=== PATIENT | female | born 1965 | race Caucasian/White ===

== ENCOUNTER → 2023-07-31 08:12 | Outpatient (REF) | payer BC, SELFPAY | LOC: HWRAD 08:12 | PROVIDERS: ATTENDING PHYSICIAN Nurse Practitioner Family | DX: C25.9 Malignant neoplasm of pancreas, unspecified (principal); R79.89 Other specified abnormal findings of blood chemistry | CPT/HCPCS: 74177; Q9967 ==

== ENCOUNTER → 2023-12-19 14:45 | Outpatient (REF) | payer BC, SELFPAY | LOC: RCS 14:45 | PROVIDERS: ATTENDING PHYSICIAN Internal Medicine Cardiovascular Disease; FAMILY PHYSICIAN Nurse Practitioner Family | DX: R07.89 Other chest pain (principal); I42.8 Other cardiomyopathies; I51.81 Takotsubo syndrome; I44.7 Left bundle-branch block, unspecified | CPT/HCPCS: 93306 ==

== ENCOUNTER → 2024-01-26 07:39 | Outpatient (REF) | payer BC, SELFPAY | LOC: DHCBC/DCA 07:39 | PROVIDERS: ATTENDING PHYSICIAN Internal Medicine Cardiovascular Disease; FAMILY PHYSICIAN Nurse Practitioner Family | DX: R07.89 Other chest pain (principal) | CPT/HCPCS: 78452; 93017; A9500; J2785 ==

== ENCOUNTER → 2024-02-24 08:35 | Outpatient (REF) | payer BC, SELFPAY | LOC: WDC 08:35 | PROVIDERS: ATTENDING PHYSICIAN Obstetrics & Gynecology; FAMILY PHYSICIAN Nurse Practitioner Family | DX: Z12.31 Encounter for screening mammogram for malignant neoplasm of breast (principal) | CPT/HCPCS: 77063; 77067 ==

== ENCOUNTER 2024-03-25 06:26 | Day surgery (SDC) | payer BC, SELFPAY | END 2024-03-25 12:29 | disposition home or self-care (01) | LOC: GI 06:26 | PROVIDERS: ATTENDING PHYSICIAN Internal Medicine Gastroenterology | DX: K22.89 Other specified disease of esophagus (principal); K44.9 Diaphragmatic hernia without obstruction or gangrene; Z90.49 Acquired absence of other specified parts of digestive tract | CPT/HCPCS: 43239; 88305 ==

== ENCOUNTER 2024-07-24 20:17 | Emergency (ER) | payer BC, SELFPAY ==
[2024-07-24 20:21] VITALS: BP 181/115
[2024-07-24 20:46] LABS: % Basophils 0.4 % (0-2); % Eosinophils 2.7 % (0-6); % Immature Granulocytes 0.2 % (0-0.5); % Lymphocytes 36.8 % (20.5-51.1); % Neutrophils 52.9 % (42.2-75.2); Absolute Eosinophils 0.1 10^3/uL (0-0.7); Absolute Lymphocytes 1.8 10^3/uL (1.2-3.4); Absolute Monocytes 0.3 10^3/uL (0.1-0.6); Absolute Neutrophils 2.6 10^3/uL (1.4-6.5); Hematocrit 42.7 % (37.0-47.0); Hemoglobin 14.8 g/dL (12.0-16.0); Mean Corp Hgb Conc. 34.7 g/dL (33.0-37.0); Mean Corpuscular Volume 92.2 fL (81.0-99.0); Mean Platelet Volume 9.4 fL (7.4-10.4); Nucleated Red Blood Cells % 0 %; Platelet Count 226 10^3/uL (130-400); Red Blood Cell Count 4.63 10^6/uL (4.20-5.40); Red Cell Dist. Width 13.4 % (11.5-14.5); White Blood Cell Count 4.9 10^3/uL (4.8-10.8)
[2024-07-24 21:00] LABS: ALT (SGPT) 100 U/L (0-35); AST (SGOT) 90 U/L (14-36); Albumin 4.8 g/dl (3.5-5.0); Alkaline Phosphatase 100 U/L (38-126); Blood Urea Nitrogen 13 mg/dl (7-17); Calcium 9.5 mg/dl (8.4-10.2); Carbon Dioxide 26 mmol/L (22-30); Chloride 104 mmol/L (98-107); Glucose 137 mg/dl (70-99); Potassium 4.1 mmol/L (3.5-5.1); Sodium 141 mmol/L (135-145); Total Bilirubin 0.5 mg/dl (0.2-1.3); Total Protein 7.7 g/dl (6.3-8.2); eGFR > 60.00
[2024-07-24 21:09] VITALS: BP 160/98
[2024-07-24 21:13] LABS: Troponin I < 0.012 ng/ml
[2024-07-24 21:42] VITALS: BP 161/86
--- NOTE | 2024-07-24 21:52 | ED.GENMED ---
History of Present Illness
<Diane Carroll PA-C - Last Filed: 07/26/24 18:17>
General
Chief Complaint: Blood Pressure Problem
Source: patient
Exam Limitations: none
Time Seen by Provider: 07/24/24 21:17
Nursing documentation reviewed up to this point in time: agreed with
History of Present Illness
History of Present Illness:
pt is a 59 y/o F with h/o pancreatic cancer s/p [place] 2017 followed by [facility]
htn on metoprolol 12.5 mg bid succ
says she woke up feeling a little off, anxious, mild headache, and some chest tightness and was just feeling off
she checked her bp and itw as 140-150/90s
she says she normally feels fine and run 130/70s
so she often times doesn't take her meds
actually she was bottoming out with the 25 mg succinate once a day so she split it in half
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
she says that she knows she is noncompliant with her meds most of the time
but more recently she had noticed her BP creeping up so she did take 1 dose yesterday and took half tab at 630 pm and another half tab at 730 pm tongiht
she now feels ok
she has been under stress at work
mild headache, no vision changes
felt some chest tightness all day, nonexertional, no pleuritic pain, no swelling in legs
she has chronically had LFT elevation
but her LFTs are a little higher today than usual she thinks; we do not have labs in the system more recent than 2022; pt says she had labs in april andthinks the LFTs were lower
she is not having belly pain, vomiting, fever, chills
Past History
<Diane Carroll PA-C - Last Filed: 07/26/24 18:17>
Past History
ED Past Medical History: Cancer (Pancreatic), HTN and Other (Diverticulosis, uterine fibroids, pneumonia, pancreatic cancer)
ED Past Surgical History: Cholecystectomy, , Gynecological (D and C. right breast biopsy) and Other (Whipple procedure)
Social History
Tobacco: Former smoker
Personal:
Living: with family
Employment: Employed
Family History
Family History: Hypertension
Review of Systems
<Diane Carroll PA-C - Last Filed: 07/26/24 18:17>
Review of Systems
Allergies reviewed?: Yes
All Other Systems: Not applicable
Phy Exam
<Diane Carroll PA-C - Last Filed: 07/26/24 18:17>
Physical Exam
Physical Exam:
GENERAL: Alert , in no apparent distress, comfortable
HEAD: NCAT
EYE: pupils equal and reactive, no nystagmus, no photophobia
NECK: Supple,full rom, nontender
ENT: o/p clr, mmm.
CARDIAC: Regular rate and rhythm . no edema
LUNGS: Clear breath sounds bilaterally, no acute respiratory distress, no wheezes/rales/rhonchi
ABDOMEN: Soft, without focal tenderness, no r/g, no cvat
NEUROLOGICAL: Alert and orientedx 4, cn intact, no facial asymmetry, 5/5 strength in UE/LE, sensation intact, romberg neg, ambulates without assistance, neg pronator drift
SKIN: Warm and dry, skin intact.
MUSCULOSKELETAL: No edema, well perfused.
PSYCH: Normal and appropriate interaction.
Course
<Diane Carroll PA-C - Last Filed: 07/26/24 18:17>
Orders/Labs/Results
Orders:
Orders
07/24/24 20:30
Electrocardiogram (*1) Urgent
Reason for Study: Hypertension, Benign
Cardiology Consult: Sigifredo Pedro
07/24/24 20:31
EKG- Treatment ONCE
07/24/24 20:38
Complete Blood Count/With Diff Urgent
Comprehensive Metabolic Panel Urgent
Troponin I Urgent
07/24/24 21:27
CT Head W/o Iv Contrast Urgent
Comment:
Reason For Exam: Headache/hypertension
Abnormal Lab Results
07/24/24
20:38
MCH 32.0 H pg
(27.0-31.0)
Glucose 137 H mg/dl
(70-99)
AST 90 H U/L
(14-36)
ALT 100 H U/L
(0-35)
07/24/24 20:38
07/24/24 20:38
Vital Signs
Initial and Last Documented VS:
Initial Vital Signs
Temp Pulse Resp BP Pulse Ox
36.4 C 107 20 181/115 99
07/24/24 20:21 07/24/24 20:21 07/24/24 20:21 07/24/24 20:21 07/24/24 20:21
Last Documented Vital Signs
Temp Pulse Resp BP Pulse Ox
36.4 C 80 20 150/89 98
07/24/24 20:21 07/24/24 22:30 07/24/24 21:15 07/24/24 22:00 07/24/24 22:30
<Memo Alford MD - Last Filed: 07/24/24 22:46>
Orders/Labs/Results
Orders:
Orders
07/24/24 20:30
Electrocardiogram (*1) Urgent
Reason for Study: Hypertension, Benign
Cardiology Consult: Sigifredo Pedro
07/24/24 20:31
EKG- Treatment ONCE
07/24/24 20:38
Complete Blood Count/With Diff Urgent
Comprehensive Metabolic Panel Urgent
Troponin I Urgent
07/24/24 21:27
CT Head W/o Iv Contrast Urgent
Comment:
Reason For Exam: Headache/hypertension
Abnormal Lab Results
07/24/24
20:38
MCH 32.0 H pg
(27.0-31.0)
Glucose 137 H mg/dl
(70-99)
AST 90 H U/L
(14-36)
ALT 100 H U/L
(0-35)
07/24/24 20:38
07/24/24 20:38
Vital Signs
Initial and Last Documented VS:
Initial Vital Signs
Temp Pulse Resp BP Pulse Ox
36.4 C 107 20 181/115 99
07/24/24 20:21 07/24/24 20:21 07/24/24 20:21 07/24/24 20:21 07/24/24 20:21
Last Documented Vital Signs
Temp Pulse Resp BP Pulse Ox
36.4 C 80 20 150/89 98
07/24/24 20:21 07/24/24 22:30 07/24/24 21:15 07/24/24 22:00 07/24/24 22:30
<Diane Carroll PA-C - Last Filed: 07/26/24 18:17>
MDM/Problems Addressed
Differential Diagnosis Includes:
hypertension, stress, anxiety; noncompliance
MDM/Problems Addressed:
59 y/o F
pancreatic cancer s/p whipple
chronic mild elevation of LFTs
htn on bb but doesn't take it regularly
has had elev BP with mild headache at home for a few days
started retaking her metoprolol but wanted to get checked out
no red flag symptosm regarding headache
had some mild chest tightness but thinks it was anxiety
ekg shows prolonged qtc
pt has history of this but she has never been informed she says
i spoke about it with eher
strongly encouraged taking her BB
she did not require any iv meds for bp
ct head neg
trop neg
no sign end organ damage
lfts are more bumepd than normal
she was notified
she will call her oncologist
no abd pain
<Diane Carroll PA-C - Last Filed: 07/26/24 18:17>
*Critical Care Note
Total Time (30-74mins, 75-104mins- exclusive of procedures): Not Applicable
ED Attending Note
<Diane Carroll PA-C - Last Filed: 07/26/24 18:17>
-
Portions of this chart may have been created with voice recognition software.� Occasional wrong word or��sound alike� substitutions may have occurred due to the inherent limitations of voice recognition software.
<Memo Alford MD - Last Filed: 07/24/24 22:46>
ED Attending Note
Patient seen and examined by attending physician: Yes
I performed the substantive portion of visit, reviewed & personally made and approve the management plan that is documented in note by myself or CHANTELLE.: Yes
ED Attending Note:
59-year-old female complaining of lightheadedness and feeling off within very minimal headache. Started earlier today. Checked her blood pressures which are elevated. She is supposed to be on a beta-patric twice daily but does not take it
regularly. No chest pain shortness of breath or other complaints
GENERAL: Alert and oriented in no apparent distress
EYE: Orbits normal.
NECK: Supple, no significant adenopathy.
ENT: Pharynx without erythema
CARDIAC: Regular rate and rhythm without any obvious murmurs.
LUNGS: Clear breath sounds,normal
ABDOMEN: Soft, without focal tenderness or distention
NEUROLOGICAL: Alert and oriented , grossly non-focal. Cranial nerves II through XII intact. Speech normal. Ncbmoh-he-pjbo normal.
SKIN: Warm and dry, no rash or lesion, no discoloration, skin intact.
MUSCULOSKELETAL: No edema,no deformity.Good color
PSYCH: Normal and appropriate interaction.
Blood pressures are minimally elevated here. Exam is unremarkable workup is unremarkable. Reassurance restart blood pressure medication and follow-up
Discharge Plan
Departure
Patient Disposition: Home (Routine Discharge)
Date of Disposition: 07/24/24
Time of Disposition: 22:34
Patient with high blood pressure during this ER visit?: No
Condition: Fair
Covid-19: Not Applicable
Discharge Problem:
Headache, Hypertension
Instructions: High Blood Pressure (DC)
Prescriptions:
No Action
cholecalciferol (vitamin D3) 1,000 UNITS tablet
5,000 units PO Q48H
pantoprazole [Protonix] 20 MG tablet,delayed release (DR/EC)
20 mg PO DAILY
ascorbic acid (vitamin C) [Vitamin C] 500 mg Capsule, Extended Release
500 mg PO DAILY
metoprolol succinate 25 mg Tablet Extended Release 24 Hr
25 mg PO DAILY
Referrals:
Karin Polo CRNP [Family Provider] - Follow up in 2-3 days
Sigifredo Pedro MD [Active] - Follow up in 2-3 days
Activity Restrictions/Additional Instructions:
Your liver markers were a little bit elevated tonight which is probably unrelated to this but you should have this rechecked by her oncologist. In the meantime you could take just a low-dose Tylenol if you really needed it, otherwise avoid Tylenol.
Please try taking your blood pressure medication as prescribed or at least a half a pill in the morning and the half pill in the night for several days. Jot your blood pressures down and keep a log. If you are having elevated blood pressures
despite taking those medications regularly you should call Dr. Pedro to be seen. You could always go back up to a whole tablet in the morning and half a tablet at night and see how that does. Your CAT scan was unremarkable and otherwise your blood
work looks good. Your EKG shows that you have a prolonged QT which is something you have had before.
Make sure that your bottom precipitator operator sees you in follow-up. Return for any concern
Interventions
Interventions:
*Risk Screen - Suicide Last Done: 07/24/24 20:21
*General Assessment Last Done: 07/24/24 20:21
*Neglect/Abuse Screening Last Done: 07/24/24 20:21
*ED- Fall Risk Assessment Last Done: 07/24/24 20:21
*ED COVID-19 Vaccine History Last Done: 07/24/24 20:21
*Nursing Disposition Last Done: 07/24/24 23:18
ED- Cardiac Assessment Last Done: 07/24/24 21:19
ED- Neurological Assessment Last Done: 07/24/24 21:19
ED- Pulmonary Assessment Last Done: 07/24/24 21:19
Discharge Date and Time
Discharge Date/Time: 07/24/24 23:18
Print Language: HUNGARIAN
[2024-07-24 22:00] VITALS: BP 150/89
== END 2024-07-24 23:18 | disposition home or self-care (01) ==
LOC: EMR 20:17
PROVIDERS: EMERGENCY PHYSICIAN Emergency Medicine; FAMILY PHYSICIAN Nurse Practitioner Family
DX: R51.9 Headache, unspecified (principal); I10 Essential (primary) hypertension; F41.9 Anxiety disorder, unspecified; R07.89 Other chest pain; D25.9 Leiomyoma of uterus, unspecified; Z56.6 Other physical and mental strain related to work; Z82.49 Family history of ischemic heart disease and other diseases of the circulatory system; Z85.07 Personal history of malignant neoplasm of pancreas; Z87.891 Personal history of nicotine dependence; Z90.411 Acquired partial absence of pancreas; Z90.49 Acquired absence of other specified parts of digestive tract; Z91.148 Patient's other noncompliance with medication regimen for other reason
CPT/HCPCS: 99284; 70450; 80053; 84484; 85025; 93005

== ENCOUNTER 2024-09-15 00:43 | Inpatient (IN) | payer BC, SELFPAY ==
[2024-09-14 19:12] VITALS: BP 184/110
[2024-09-14 19:34] LABS: % Basophils 0.4 % (0-2); % Lymphocytes 31.5 % (20.5-51.1); % Monocytes 6.3 % (1.7-9.3); % Neutrophils 58.8 % (42.2-75.2); Absolute Eosinophils 0.2 10^3/uL (0-0.7); Absolute Lymphocytes 1.6 10^3/uL (1.2-3.4); Absolute Monocytes 0.3 10^3/uL (0.1-0.6); Absolute Neutrophils 2.9 10^3/uL (1.4-6.5); Hematocrit 40.9 % (37.0-47.0); Hemoglobin 13.8 g/dL (12.0-16.0); Mean Corp Hgb Conc. 33.7 g/dL (33.0-37.0); Mean Corpuscular Hgb 31.8 pg (27.0-31.0); Mean Corpuscular Volume 94.2 fL (81.0-99.0); Mean Platelet Volume 9.4 fL (7.4-10.4); Nucleated Red Blood Cells % 0 %; Platelet Count 232 10^3/uL (130-400); Red Blood Cell Count 4.34 10^6/uL (4.20-5.40); Red Cell Dist. Width 13.5 % (11.5-14.5); Urine Albumin Negative (Neg - Trace); Urine Bilirubin Negative (Negative); Urine Character Clear (Clear); Urine Color Yellow; Urine Glucose Negative (Negative); Urine Ketone Negative (Negative); Urine Leukocyte Negative (Negative); Urine Nitrite Negative (Negative); Urine Occult Blood Negative (Negative); Urine Specific Gravity 1.005 (<1.030); Urine Urobilinogen Negative (Neg - 1+); White Blood Cell Count 4.9 10^3/uL (4.8-10.8)
[2024-09-14 19:47] LABS: ALT (SGPT) 62 U/L (0-35); AST (SGOT) 59 U/L (14-36); Alkaline Phosphatase 88 U/L (38-126); Blood Urea Nitrogen 12 mg/dl (7-17); Calcium 9.5 mg/dl (8.4-10.2); Carbon Dioxide 27 mmol/L (22-30); Chloride 112 mmol/L (98-107); Glucose 146 mg/dl (70-99); Potassium 4.2 mmol/L (3.5-5.1); Sodium 144 mmol/L (135-145); Total Bilirubin 0.6 mg/dl (0.2-1.3); Total Protein 7.9 g/dl (6.3-8.2); eGFR > 60.00
[2024-09-14 19:50] LABS: Lipase 1547 U/L (23-300)
--- NOTE | 2024-09-14 21:36 | ED.GENMED ---
History of Present Illness
General
Chief Complaint: Abdominal Pain
Time Seen by Provider: 09/14/24 21:36
History of Present Illness
History of Present Illness:
TIME OF INITIAL ENCOUNTER: 9:50 PM
HPI: The patient presents with upper abdominal pain more so on the right side that radiates to the back. This feels similar to the time that she had a gallbladder attack. She has had a cholecystectomy. She also has a history of pancreatic cancer
diagnosed 2017 and had a Whipple in 2018 and has not required any recent treatment. She is scheduled for a abdominal CAT scan next month with Dr. Watkins. She has some nausea but has not been vomiting.
EXAM:
GENERAL: Well appearing in no distress
HEENT: Moist oral mucosa
CARDIOVASCULAR: No murmurs, normal heart rate, regular rhythm, No chest wall tenderness
PULMONARY: No respiratory distress, breath sounds are clear and equal
ABDOMEN: Soft with no peritoneal signs, very mild upper tenderness
NEUROLOGIC: Excellent strength all extremities, no coordination deficits
PSYCHIATRIC: Appropriate mental status, normal insight and judgement
EXTREMITIES: Nontender, no edema, moves all extremities equally
SKIN: No rash, no lesions
NUMBER AND COMPLEXITY OF PROBLEMS ADDRESSED AT THE ENCOUNTER
� Chronic conditions affecting care: Pancreatic cancer
� Acute Exacerbation and/or Progression of Chronic Illness: This is an acute problem
� Differential Diagnosis includes: Pancreatitis, CBD stone, recurrence of pancreatic malignancy
AMOUNT AND/OR COMPLEXITY OF DATA TO BE REVIEWED AND ANALYZED
� I performed an independent evaluation of and my interpretation is:
EKG:
CT:
X-rays:
Laboratory Studies: White count normal, minimal transaminase elevation, lipase 1547, total bili normal, urinalysis negative
Other: Ultrasound shows normal CBD
� Review of other/old records: I reviewed records, the patient had endoscopy with Dr. Singh last March that was consistent with eosinophilic esophagitis
� Clinical information was obtained by an independent historian: I spoke to at bedside
� Prescriptions/Medications Considered but not given:
� Further testing considered but not performed:
RISK OF COMPLICATIONS AND/OR MORBIDITY OR MORTALITY OF PATIENT MANAGEMENT
� Social determinants of health affecting care: Lives at home
� Discussion with other providers:
� Escalation of care including admission/observation vs risk of discharge considered: The patient has an elevated lipase. Fluids were given. Will treat analgesia. Plan admission.
ANY OTHER UPDATES:
The patient was given fluids and analgesia. Will plan admission to the hospital for at least mild pancreatitis in the setting of known pancreatic cancer.
Past History
Past History
ED Past Medical History: Cancer (Pancreatic), HTN and Other (Diverticulosis, uterine fibroids, pneumonia, pancreatic cancer)
ED Past Surgical History: Cholecystectomy, , Gynecological (D and C. right breast biopsy) and Other (Whipple procedure)
Social History
Tobacco: Former smoker
Personal:
Living: with family
Employment: Employed
Family History
Family History: Hypertension
Phy Exam
Physical Exam
Physical Exam:
See HPI
Course
Orders/Labs/Results
Orders:
Orders
09/14/24 19:22
Complete Blood Count/With Diff Urgent
Comprehensive Metabolic Panel Urgent
Lipase Urgent
Urinalysis Reflex To Culture Urgent
Date Specimen was Collected: 09/14/24
Time Specimen was Collected: 19:16
09/14/24 21:50
0.9% Sodium Chloride 1000 ml [Nss] 1,000 ml IV BOLUS
HYDROmorphone [Dilaudid] 1 mg IV NOW STA
Ondansetron Injectable [Zofran] 4 mg IV NOW STA
09/14/24 21:51
US Abdomen Complete/Upper Urgent
Comment:
Reason For Exam: eval CBD; pancreatitis; h/o panc ca
09/15/24 00:07
Admit/Transfer Patient As Directed
Co-Sign Provider:
Level of Care: Inpatient admission
Assign to:: Medical/Surgical
Physician / Group: Josh
Diagnosis: acute pancreatitis
Reason for Hospitalization: acute pancreatitis
Expected length of stay greater than two midnights?: Yes
ELOS- Estimated Length of Stay in days: 2
I certify the patient meets the requirements for IP care: Yes
PRN Pain Medication Management As Directed
May give lesser potent ordered pain med per pt: Yes
preference::
Protocol:: Medication orders for pain may be administered in a
manner that supports deferring to patient preference
when the pt is:
- Requesting an ordered lesser potent pain medication.
Least to most potent pain medications are defined
as: acetaminophen < NSAID < tramadol < opioids
(morphine, oxycodone, hydromorphone).
- Requesting a lesser dose of the same medication IF
ORDERED.
- Requesting a less intrusive route of administration
if both routes are prescribed by the provider (PO <
IV).
09/15/24 00:08
Code Status As Directed
Resuscitation Status: Full Code
Abnormal Lab Results
09/14/24
19:22
MCH 31.8 H pg
(27.0-31.0)
Chloride 112 H mmol/L
(98-107)
Glucose 146 H mg/dl
(70-99)
AST 59 H U/L
(14-36)
ALT 62 H U/L
(0-35)
Lipase 1547 H* U/L
(23-300)
09/14/24 19:22
09/14/24 19:22
Vital Signs
Initial and Last Documented VS:
Initial Vital Signs
Temp Pulse Resp BP Pulse Ox
36.9 C 102 18 184/110 100
09/14/24 19:12 09/14/24 19:12 09/14/24 19:12 09/14/24 19:12 09/14/24 19:12
Last Documented Vital Signs
Temp Pulse Resp BP Pulse Ox
36.9 C 102 18 144/70 98
09/14/24 22:13 09/14/24 19:12 09/14/24 19:12 09/14/24 22:14 09/14/24 22:15
*Critical Care Note
Total Time (30-74mins, 75-104mins- exclusive of procedures): Not Applicable
ED Attending Note
-
Portions of this chart may have been created with voice recognition software.� Occasional wrong word or��sound alike� substitutions may have occurred due to the inherent limitations of voice recognition software.
Discharge Plan
Departure
Patient Disposition: Admit
Date of Disposition: 09/15/24
Time of Disposition: 00:01
Presentation/result/management discussed w/ accepting MD/DO: Hospitalist
Discharge Problem:
Pancreatitis
Prescriptions:
No Action
pantoprazole [Protonix] 20 MG tablet,delayed release (DR/EC)
20 mg PO QPM
metoprolol succinate 25 mg Tablet Extended Release 24 Hr
25 mg PO DAILY
magnesium hydroxide [Milk of Magnesia] 400 mg/5 mL Suspension
2,400 mg PO DAILYPRN PRN (Reason: stomach issues)
pantoprazole [Protonix] 40 mg Tablet,Delayed Release (Dr/Ec)
40 mg PO DAILY
metoprolol succinate [Toprol XL] 25 mg Tablet Extended Release 24 Hr
12.5 mg PO QPM
Referrals:
Karin Polo CRNP [Family Provider] -
Interventions
Interventions:
*Risk Screen - Suicide Last Done: 09/14/24 19:12
*General Assessment Last Done: 09/14/24 19:12
*Neglect/Abuse Screening Last Done: 09/14/24 21:57
*ED- Fall Risk Assessment Last Done: 09/14/24 21:57
*ED COVID-19 Vaccine History Last Done: 09/14/24 19:12
VR-Qhnzdl-Uccvvqhtna Assessment Last Done: 09/14/24 23:05
ED-Musculoskeletal Assessment Last Done: 09/14/24 23:05
Discharge Date and Time
Print Language: EGYPTIAN
[2024-09-14 21:57] VITALS: BMI 35.0
[2024-09-14] MEDS: ZOFRAN 4 MG IV (22:04)
[2024-09-14] MEDS: NSS 1000 IV (22:05)
[2024-09-14] MEDS: DILAUDID 1 MG IV (22:06)
[2024-09-14 22:14] VITALS: BP 144/70
--- NOTE | 2024-09-15 00:01 | HPS.HSE ---
Family Physician
-
Family Physician: DELANEY Fountain
Chief Complaint
-
Abdominal pain
History of Present Illness
This is a 59-year-old female with past medical history of GERD, diverticulitis, pancreatic cancer status post Whipple, status post cholecystectomy, hypertension presenting to the emergency department with acute episode of epigastric pain.
Patient reported that she has been having intermittent epigastric pain for a few weeks. However it became more severe today. She reported epigastric pain that was radiating to the back and associated with nausea and vomiting. The vomiting was
nonbloody and nonbilious. She denied diarrhea. She denies any fevers or chills.
Patient has history of pancreatic cancer status post Whipple in 2018. She says she is has episode of pancreatitis since then. She did not have a cause at that time. She is status post cholecystectomy. She denies any alcohol use. She denies any
new medications. She reports that she is being followed with a CT scan next week for her prior pancreatic cancer but has no recent evidence of recurrence.
In the emergency department he was afebrile, blood pressure was 144/70 with a pulse of 102 and satting 98% on room air.
There was no leukocytosis with a white count of 4.9, hemoglobin and platelets were normal. Electrolytes BUN/creatinine were normal. LFTs was normal. Lipase was elevated at 1547.
Abdominal ultrasound shows hepatic fatty infiltration, prior cholecystectomy, prior Whipple's procedure
Medical History
Past Medical History
Past Medical History: Reports Other
Additional Past Medical History:
Pancreatic Cancer
Hypertension
Anxiety / Depression
Gilbert's Esophagus / GERD
Obesity
Chronic LBBB
Diverticular Disease
Past Surgical History: Reports Other
Additional Past Surgical History:
Whipple
Sigmoid Resection
x 2
Cholecystectomy
Right Breast Biopsy (benign)
D&C
Social History
Tobacco: Former Smoker (20 years 1 pack/day quit 2017)
Alcohol: Occasional
Drug: None
Personal:
Living: With Family
Family History
Family History: Not pertinent
Allergies / Home Medications
Allergies reflects when Allergies were last updated in [facility].
Home Medications with original date entered in [facility]
Allergy/Medication List:
Allergies
Allergy/AdvReac Type Severity Reaction Status Date / Time
adhesive tape Allergy Rash Verified 01/27/23 20:44
cefuroxime Allergy lip Verified 01/27/23 20:44
swelling
gluten Allergy diarrhea Verified 01/27/23 20:44
ibuprofen [From Motrin] Allergy Swelling Verified 01/27/23 20:44
levofloxacin [From Levaquin] Allergy upset Verified 01/27/23 20:44
stomach
Penicillins Allergy face/eyes Verified 01/27/23 20:44
swelling/rash
pollen extracts Allergy SEASONAL-CONGESTION, Verified 01/27/23 20:44
SNEEZING,
ITCHY
Home Medications
cholecalciferol (vitamin D3) 25 mcg (1,000 unit) tablet 5,000 units PO Q48H Supplement 05/03/21
pantoprazole 20 mg tablet,delayed release (Protonix) 20 mg PO DAILY Gastrointestinal issue 06/06/21
ascorbic acid (vitamin C) 500 mg capsule,extended release (Vitamin C) 500 mg PO DAILY Supplement 02/12/22
metoprolol succinate 25 mg tablet,extended release 24 hr 25 mg PO DAILY 01/28/23
Review of Systems
-
Constitutional: Reports No Symptoms
EENT: Reports No Symptoms
Respiratory: Reports No Symptoms
Cardiac: Reports No Symptoms
Abdomen/GI: Reports Abdominal Pain
: Reports No Symptoms
Musculoskeletal: Reports No Symptoms
Skin: Reports No Symptoms
Neurological: Reports No Symptoms
Endocrine: Reports No Symptoms
Hematologic/Lymphatic: Reports No Symptoms
Psych: Reports No Symptoms
Physical Exam
Vital Signs
Vital Signs
Temp Pulse Resp BP Pulse Ox
98.4 F 102 18 144/70 98
09/14/24 22:13 09/14/24 19:12 09/14/24 19:12 09/14/24 22:14 09/14/24 22:15
Physical Exam
General: Well Developed, Well Nourished, No Apparent Distress and Comfortable
HEENT: NormoCephalic, Anicteric, Moist mucous membranes and Atraumatic
Respiratory: Clear
Cardiac: S1/S2 and Regular Rhythm
GI: Soft, Non Distended, Normal Bowel Sounds and Tender
Musculoskeletal: No Clubbing, No Cyanosis and No Edema
Neuro: AO x 3
Hematologic/Lymphatic: No Lymphadenopathy
Psych: Calm
Laboratory Results
-
09/14/24 19:22
09/14/24 19:22
Laboratory Results
Total Bilirubin 0.6 mg/dl (0.2-1.3) 09/14/24 19:22
AST 59 U/L (14-36) H 09/14/24 19:22
ALT 62 U/L (0-35) H 09/14/24 19:22
Alkaline Phosphatase 88 U/L (38-126) 09/14/24 19:22
Lipase 1547 U/L (23-300) H* 09/14/24 19:22
Data Reviewed
-
Ultrasound: Report Reviewed by me
Lab Data: Labs Reviewed by me
Old Records: Reviewed
Impression/Plan
-
IMPRESSION:
59-year-old with past medical history of pancreatic cancer status post Whipple procedure who presents to the emergency department with epigastric abdominal pain and found to have elevated lipase with normal LFTs. Patient complains consistent with
acute pancreatitis. Ultrasound shows no acute findings including no ductal dilatation, fluid collection or ascites. She is status post cholecystectomy. Likely this pancreatitis is on the basis of postsurgical complication but cannot rule out a
mass.
PLAN:
1. Acute pancreatitis of unkown etiology
- admit to med/surg
- npo for now
- IV fluids, pain control and antiemetics
- no indication for abx
- check etoh, triglycerides and a1c
- further imaging with MRI abdomen in am
DVT PPX - lovenox sq
Code status - Full Code
[2024-09-15 01:15] VITALS: BP 151/85; BMI 35.2
[2024-09-15] MEDS: LR 1000 IV ×3 (01:40→16:29)
[2024-09-15] MEDS: DILAUDID 0.5 MG IV (01:43)
[2024-09-15] MEDS: COMPAZINE 5 MG IV (01:45)
[2024-09-15] MEDS: TOPROL XL 25 MG PO (07:48)
[2024-09-15] MEDS: NSS (PRESERVATIVE FREE) 10 ML IV ×2 (07:48→19:52)
[2024-09-15] MEDS: PROTONIX IV 40 MG IV ×2 (07:48→19:52)
[2024-09-15 07:55] VITALS: BP 127/62
[2024-09-15 08:15] LABS: Hematocrit 34.5 % (37.0-47.0); Hemoglobin 11.7 g/dL (12.0-16.0); Mean Corp Hgb Conc. 33.9 g/dL (33.0-37.0); Mean Corpuscular Volume 94.3 fL (81.0-99.0); Mean Platelet Volume 9.9 fL (7.4-10.4); Platelet Count 177 10^3/uL (130-400); Red Blood Cell Count 3.66 10^6/uL (4.20-5.40); Red Cell Dist. Width 13.6 % (11.5-14.5); White Blood Cell Count 3.9 10^3/uL (4.8-10.8)
[2024-09-15 08:45] LABS: Blood Urea Nitrogen 11 mg/dl (7-17); Calcium 8.4 mg/dl (8.4-10.2); Carbon Dioxide 25 mmol/L (22-30); Chloride 113 mmol/L (98-107); Estimated Creatinine Clearance 103 ml/min; Glucose 99 mg/dl (70-99); Potassium 4.3 mmol/L (3.5-5.1); Sodium 142 mmol/L (135-145); Triglycerides 94 mg/dl (10-149); eGFR > 60.00
[2024-09-15 09:05] LABS: Glycohemoglobin (HgbA1c) 5.9 % (4.0-5.6)
--- NOTE | 2024-09-15 09:52 | CM ---
Initial assessment completed. Patient is a 59-year-old female with past medical history of GERD, diverticulitis, pancreatic cancer status post Whipple, status post cholecystectomy, hypertension presenting to the emergency department with acute
episode of epigastric pain.
Patient resides w/ spouse in a 2STH- no steps from the front, 1 step from the garage. Independent w/ ambulating, no device required. Independent w/ ADLs. No SNF/HC hx reported. No DME. 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.
Address, point of contact and insurance verified
PCP: Karin Polo
Pharamacy: [facility] [place]
Plan: Home, no needs
[2024-09-15 10:40] LABS: ALT (SGPT) 49 U/L (0-35); AST (SGOT) 48 U/L (14-36); Alkaline Phosphatase 66 U/L (38-126); Total Bilirubin 0.5 mg/dl (0.2-1.3)
--- NOTE | 2024-09-15 12:11 | CON.GI ---
Addendum entered and electronically signed by Cristino Asencio MD 09/15/24 14:36:
I saw and examined the patient.
The ROD POINTER or PA's note was reviewed and I agree with the note.
Comment: 59yo female hx pancreatic cancer s/p Whipple/chemo/xrt in 2018 presents with acute pancreatitis, lipase 1547. She drank 3-5 drinks over Mother's Day weekend. She also had bout pancreatitis in 2022 and believes she had EtOH then. She
drinks occasionally. She gets annual CT scan with Dr Watkins, has been RALPH. MRCP this admission shows mild dilation PD in remnant pancreas with edema.
REC:
Her EtOH use could be cause for her pancreatitis
I told her to quit completely moving forward
She is scheduled for CT next week. Instead I told her to get MRI/MRCP in 1 month following resolution of this attack in order to rule out recurrence of pancreatic cancer from 2018
OK for low fat diet for dinner. Can d/c if tolerates
Original Note:
Consultation
-
Date/Time Consultation Requested: 09/15/24 1200
Date/Time Consultation Performed: 09/15/24 1210
Requesting Provider: Benita Mendoza MD
Performing Provider: DELANEY Cunningham, Cristino Asencio MD
Reason for Consultation: recurrent pancreatitis
Medical History
Chief Complaint / HPI
Chief Complaint: abdominal pain
History of Present Illness:
58-year-old female with past medical history of Gilbert's esophagus without dysplasia, hyperlipidemia, GERD, pancreatic cancer status post Whipple with radiation and chemo 2017, history of Takotsubo's cardiomyopathy, diverticulitis status post
robotic sigmoid resection June 2021, pancreatitis 2022 and fatty liver presents to the emergency room with acute onset of abdominal pain. On admission noted with bili 0.6, AST 59, ALT 62, alk phos 88 with lipase of 1547. Imaging on admission
with US abdomen with fatty liver, prior darlin poor visualized pancreas, MRCP with noted prior darlin and whipple no biliary dilatation, pancreatic duct mild diffusely dilated without mass. no finding to suggest recurrent neoplasm. edema around
pancreas given hx pancreatitis, HM, fatty liver . Right and left upper Quadrant with fluid non specific.
In review with patient she admits to epigastric pain with radiation to back that started 09/14. She has occasional discomfort but pain was 10/10 prior to admission. Pain has improved and now 3/10. She also admits to chronic constipation. She
otherwise denies dysphagia, odynophagia, wt loss, GERD, nausea, vomiting, diarrhea, or rectal bleeding. She admits to increased dose of pantoprazole and Metoprolol but denies any new medication or ETOH use. Her triglycerides in the past have been
within normal limits. She has had IgG4 subclass testing in the past which is also been negative. Pt follow with Dr. Watkins and due for upcoming CT for routine monitoring.
.
Past Medical History
Past Medical History: Asthma, Cancer (Pancreatic cancer status post chemoradiation), GERD (Gilbert's esophagus without dysplasia), HTN and Other (Takotsubo's cardiomyopathy, Fatty liver, alcoholic liver disease, diverticulitis status post sigmoid
resection,Pancreatitis)
Past Surgical History: Cholecystectomy, and Other (Whipple ([address] Dr. Mckeon), benign breast biopsy x2 left, D&C, robotic sigmoid resection 06/2021)
Social History
Tobacco: Former Smoker
Alcohol: None
Drug: None
Personal:
Living: With Family
Employment: Employed
Family History
Family History: Other (No family history of gastrointestinal malignancy or inflammatory bowel disease)
Allergies / Home Medications
Allergy/AdvReac Type Severity Reaction Status Date / Time
adhesive tape Allergy Rash Verified 09/14/24 19:16
cefuroxime Allergy lip Verified 09/14/24 19:16
swelling
gluten Allergy diarrhea Verified 09/14/24 19:16
ibuprofen [From Motrin] Allergy Swelling Verified 09/14/24 19:16
levofloxacin [From Levaquin] Allergy upset Verified 09/14/24 19:16
stomach
Penicillins Allergy face/eyes Verified 09/14/24 19:16
swelling/rash
pollen extracts Allergy SEASONAL-CONGESTION, Verified 09/14/24 19:16
SNEEZING,
ITCHY
�Medication �Instructions �Recorded
pantoprazole 20 mg tablet,delayed 20 mg PO QPM Gastrointestinal issue 06/06/21
release (Protonix)
metoprolol succinate 25 mg 25 mg PO DAILY Blood Pressure 01/28/23
tablet,extended release 24 hr
magnesium hydroxide 400 mg/5 mL 2,400 mg PO DAILYPRN PRN stomach 09/14/24
oral suspension (Milk of Magnesia) issues
metoprolol succinate 25 mg 12.5 mg PO QPM 09/14/24
tablet,extended release 24 hr
(Toprol XL)
pantoprazole 40 mg tablet,delayed 40 mg PO DAILY 09/14/24
release (Protonix)
Review of Systems
-
History Source: Patient and Family
Constitutional: Reports No Symptoms
EENT: Reports No Symptoms
Respiratory: Reports No Symptoms
Cardiac: Reports No Symptoms
Abdomen/GI: Reports Abdominal Pain and Constipated
: Reports No Symptoms
Musculoskeletal: Reports No Symptoms
Skin: Reports No Symptoms
Neurological: Reports No Symptoms
Endocrine: Reports No Symptoms
Hematologic/Lymphatic: Reports No Symptoms
Vital Signs
Temp Pulse Resp BP Pulse Ox
98.0 F 58 14 127/62 97
09/15/24 07:55 09/15/24 07:55 09/15/24 07:55 09/15/24 07:55 09/15/24 11:34
Physical Exam
Exam
General: Well Developed, Well Nourished and No Apparent Distress
HEENT: Normocephalic and Anicteric
Respiratory: Clear
Cardiac: Regular Rhythm
GI: Soft, Non Distended and Tender (minimal epigastric pain)
Musculoskeletal: No Clubbing and No Cyanosis
Skin: Warm and Dry
Neuro: Awake, Alert and AO x 3
Psych: Calm
Results
WBC 3.9 10^3/uL (4.8-10.8) L 09/15/24 07:22
Hgb 11.7 g/dL (12.0-16.0) L 09/15/24 07:22
Hct 34.5 % (37.0-47.0) L 09/15/24 07:22
MCV 94.3 fL (81.0-99.0) 09/15/24 07:22
Plt Count 177 10^3/uL (130-400) D 09/15/24 07:22
Absolute Neuts (auto) 2.9 10^3/uL (1.4-6.5) 09/14/24 19:22
Sodium 142 mmol/L (135-145) 09/15/24 07:22
Potassium 4.3 mmol/L (3.5-5.1) 09/15/24 07:22
Chloride 113 mmol/L (98-107) H 09/15/24 07:22
Carbon Dioxide 25 mmol/L (22-30) 09/15/24 07:22
BUN 11 mg/dl (7-17) 09/15/24 07:22
Creatinine 0.6 mg/dL (0.6-1.0) 09/15/24 07:22
Calcium 8.4 mg/dl (8.4-10.2) 09/15/24 07:22
Total Bilirubin 0.5 mg/dl (0.2-1.3) 09/15/24 07:22
AST 48 U/L (14-36) H 09/15/24 07:22
ALT 49 U/L (0-35) H 09/15/24 07:22
Alkaline Phosphatase 66 U/L (38-126) 09/15/24 07:22
Lipase 1547 U/L (23-300) H* 09/14/24 19:22
Diagnostic Image Results:
09/15/24 MRCP
IMPRESSION: Status post cholecystectomy and Whipple procedure. No evidence for biliary ductal dilation.
Pancreatic duct is mildly diffusely dilated, with no evidence for a pancreatic mass lesion. No findings to suggest recurrent neoplasia.
Mild edema surrounding the pancreas, in this patient with the given history of pancreatitis. No evidence of a focal fluid collection.
Hepatomegaly with diffuse fatty infiltration of the liver. No evidence of a focal hepatic lesion.
Minimal free fluid in the right upper quadrant and left upper quadrant, nonspecific.
09/14/24 US Abdomen Complete/Upper
IMPRESSION: Hepatic fatty infiltration. Stable
Prior cholecystectomy. Stable
Poor visualization of pancreas. Prior Whipple's procedure. Stable
07/2023 CT A/p
1. No evidence for locally recurrent or metastatic disease within the abdomen or pelvis.
2. Stable postoperative findings related to prior Whipple's procedure.
3. Hepatic steatosis.
4. Additional findings above.
03/2023- MR wih and without contrast
No MRI evidence for local disease reoccurrence or metastatic disease in the abdomen.
No pancreatic or bile duct dilation
Prior GI Procedures:
EGD: 2023 [facility] - Esophageal mucosal changes suspicious for
eosinophilic esophagitis. Biopsied.
- Z-line irregular, 36 cm from the incisors. Biopsied.
- Small hiatal hernia.
- No gross lesions in the entire stomach.
- Widely patent pylorus-sparing Whipple, characterized
by healthy appearing mucosa was found in the duodenum.
Biopsied. bx SB bx neg, neg intestinal metaplasia, features of EOE not identifiec
Colonoscopy: 2020 sal[facility] adequate prep to cecum- Tortuous colon.
- Diverticulosis in the sigmoid colon, in the
descending colon and in the transverse colon.
- Internal hemorrhoids.
- No specimens collected
11/01/2021 FibroScan F3 fibrosis without cirrhosis
Assessment / Plan
-
58-year-old female with past medical history of Gilbert's esophagus without dysplasia, hyperlipidemia, GERD, pancreatic cancer status post Whipple with radiation and chemo 2017, history of Takotsubo's cardiomyopathy, diverticulitis status post
robotic sigmoid resection June 2021, pancreatitis 2022 and fatty liver presents to the emergency room with acute onset of abdominal pain. On admission noted with bili 0.6, AST 59, ALT 62, alk phos 88 with lipase of 1547. Imaging on admission
with US abdomen with fatty liver, prior darlin poor visualized pancreas, MRCP with noted prior darlin and whipple no biliary dilatation, pancreatic duct mild diffusely dilated without mass. no finding to suggest recurrent neoplasm. edema around
pancreas given hx pancreatitis, HM, fatty liver . Right and left upper Quadrant with fluid non specific. She admits to increased dose of pantoprazole and Metoprolol but denies any new medication or ETOH use. Her triglycerides in the past have been
within normal limits. She has had IgG4 subclass testing in the past which is also been negative. Pt follow with Dr. Watkins and due for upcoming CT for routine monitoring.
-Pancreatitis with prior pancreatitis in 2022
-MRCP with mild dilated pancreatic duct
-History of pancreatic cancer status post Whipple 2018 Dr. Mckeon (XRT/CXT)
-GERD/Gilbert's esophagus
-Fatty liver
other med problems:
-GERD
-history of Takotsubo's cardiomyopathy
- diverticulitis status post robotic sigmoid resection June 2021
Plan:
Etiology of recurrent pancreatitis unclear -- US limited pancreatitis and MRCP with pancreatic inflammation and pancreatic duct dilatation not noted on prior MRI but no mass seen(some limitation as done as MRCP only)
-Continue IV fluids currently at 150ml/hr
pt feeling improved today
cont Clear liquids
pain control
will review imaging with Dr. Asencio with noted pancreatic duct dilation-- pt is due for OP CT 09/23 for oncology follow up with hx prior pancreatic Cancer
will need follow up with Dr. Singh after admission and consider repeat MRI with and without contrast with MRCP when inflammation improves
family updated
-
-
Thank you for consultation and allowing me to participate in the patient's care. Please call the control and recovery special tactics GI physician during the after hours with any questions or concerns.
--- NOTE | 2024-09-15 12:32 | W.PN.HOSP.TC ---
Today's Communication/Plan
-
see plan
Assessment / Plan
Assessment / Plan
IMPRESSION:
59-year-old with past medical history of pancreatic cancer status post Whipple procedure, two prior admissions for acute pancreatitis unknown etiology who presents to the emergency department with epigastric abdominal pain and found to have elevated
lipase with normal LFTs. Patient complains consistent with acute pancreatitis.
Abdomen US 09/14/24
IMPRESSION: Hepatic fatty infiltration. Stable
Prior cholecystectomy. Stable
Poor visualization of pancreas. Prior Whipple's procedure. Stable
MRI 09/14/24
IMPRESSION: Status post cholecystectomy and Whipple procedure. No evidence for biliary ductal dilation.
Pancreatic duct is mildly diffusely dilated, with no evidence for a pancreatic mass lesion. No findings to suggest recurrent neoplasia.
Mild edema surrounding the pancreas, in this patient with the given history of pancreatitis. No evidence of a focal fluid collection.
Hepatomegaly with diffuse fatty infiltration of the liver. No evidence of a focal hepatic lesion.
Minimal free fluid in the right upper quadrant and left upper quadrant, nonspecific.
Acute pancreatitis of unkown etiology
- admit to med/surg
- MRI results above
- consult GI
- IV fluids, pain control and antiemetics
- advance to clears
DVT PPX - lovenox sq
Code status - Full Code
Anticipated Discharge: 24 - 48 hours
Subjective/Interval History
-
Date of Service: September 15, 2024
pain improving
wants to drink clears
Objective Data
-
Labs:
Laboratory Results
09/15/24
07:22
WBC 3.9 L
Hgb 11.7 L
Hct 34.5 L
Plt Count 177 D
Sodium 142
Potassium 4.3
Chloride 113 H
Carbon Dioxide 25
BUN 11
Creatinine 0.6
Glucose 99
Calcium 8.4
Total Bilirubin 0.5
AST 48 H
ALT 49 H
Alkaline Phosphatase 66
Vital Signs:
Vital Signs
Temp Pulse Resp BP Pulse Ox
98.0 F 58 14 127/62 97
09/15/24 07:55 09/15/24 07:55 09/15/24 07:55 09/15/24 07:55 09/15/24 11:34
I&O
09/14/24 09/15/24 09/16/24
06:59 06:59 06:59
Intake Total 770 / 770
Balance 770 / 770
Review of Systems
-
History Source: Patient
All other systems: Reviewed and negative
Physical Exam
-
General: Well Developed, No Apparent Distress and Obese
HEENT: Normocephalic, Atraumatic and Moist Mucous Membranes
Respiratory: Clear to Auscultation
Cardiac: Regular Rhythm and S1/S2; Negative Murmur, Rub or Gallop
GI: Soft, Nondistended, Normal Bowel Sounds and Tender; Negative Organomegaly
Rectal: Deferred by Provider
Musculoskeletal: No Clubbing, No Cyanosis and No Edema
Skin: Negative Rash
Neuro: Awake, AO x 3 and Nonfocal/Grossly Intact
Psych: Calm
Data Reviewed
-
Diagnostic Radiology: Report Reviewed by me
Labs: Labs Reviewed by me
[2024-09-15 16:02] VITALS: BP 139/69
[2024-09-15] MEDS: TOPROL XL 12.5 MG PO (17:19)
[2024-09-15 23:19] VITALS: BP 134/63
[2024-09-16] MEDS: LR 1000 IV (00:10)
[2024-09-16 07:34] VITALS: BP 157/84
[2024-09-16] MEDS: TOPROL XL 25 MG PO (08:26)
[2024-09-16] MEDS: NSS (PRESERVATIVE FREE) 10 ML IV (08:27)
[2024-09-16] MEDS: PROTONIX IV 40 MG IV (08:27)
--- NOTE | 2024-09-16 08:53 | W.PN.HOSP.TC ---
Today's Communication/Plan
-
expect DC today once labs return
Assessment / Plan
Assessment / Plan
IMPRESSION:
59-year-old with past medical history of pancreatic cancer status post Whipple procedure, two prior admissions for acute pancreatitis unknown etiology who presents to the emergency department with epigastric abdominal pain and found to have elevated
lipase with normal LFTs. Admitted for recurrent acute pancreatitis
Abdomen US 09/14/24
IMPRESSION: Hepatic fatty infiltration. Stable
Prior cholecystectomy. Stable
Poor visualization of pancreas. Prior Whipple's procedure. Stable
MRI/MRCP 09/14/24
IMPRESSION: Status post cholecystectomy and Whipple procedure. No evidence for biliary ductal dilation.
Pancreatic duct is mildly diffusely dilated, with no evidence for a pancreatic mass lesion. No findings to suggest recurrent neoplasia.
Mild edema surrounding the pancreas, in this patient with the given history of pancreatitis. No evidence of a focal fluid collection.
Hepatomegaly with diffuse fatty infiltration of the liver. No evidence of a focal hepatic lesion.
Minimal free fluid in the right upper quadrant and left upper quadrant, nonspecific.
Acute pancreatitis
- admit to med/surg
- MRI results above
- s/p IVF, diet advanced, now tolerating low fat diet
- appreciate GI consult, plan to repeat MRI in one month with contrast (can be ordered by PCP)
- OK for DC once labs return
DVT PPX - lovenox sq
Code status - Full Code
Anticipated Discharge: Today
Subjective/Interval History
-
Date of Service: September 16, 2024
feeling better
tolerated low fat diet
wants to go home
Objective Data
-
Labs:
Laboratory Results
09/16/24
08:00
Sodium Pending
Potassium Pending
Chloride Pending
Carbon Dioxide Pending
BUN Pending
Creatinine Pending
Glucose Pending
Calcium Pending
Total Bilirubin Pending
AST Pending
ALT Pending
Alkaline Phosphatase Pending
Vital Signs:
Vital Signs
Temp Pulse Resp BP Pulse Ox
97.9 F 61 17 157/84 97
09/16/24 07:34 09/16/24 07:34 09/16/24 07:34 09/16/24 07:34 09/16/24 07:34
I&O
09/15/24 09/16/24 09/17/24
06:59 06:59 06:59
Intake Total 770 / 770 3800 / 3800
Balance 770 / 770 3800 / 3800
Review of Systems
-
History Source: Patient
All other systems: Reviewed and negative
Physical Exam
-
General: Well Developed, No Apparent Distress and Obese
HEENT: Normocephalic, Atraumatic and Moist Mucous Membranes
Respiratory: Clear to Auscultation
Cardiac: Regular Rhythm and S1/S2; Negative Murmur, Rub or Gallop
GI: Soft, Nondistended, Normal Bowel Sounds and Tender; Negative Organomegaly
Rectal: Deferred by Provider
Musculoskeletal: No Clubbing, No Cyanosis and No Edema
Skin: Negative Rash
Neuro: Awake, AO x 3 and Nonfocal/Grossly Intact
Psych: Calm
Data Reviewed
-
Diagnostic Radiology: Report Reviewed by me
Labs: Labs Reviewed by me
--- NOTE | 2024-09-16 08:58 | W.DS.TRANS ---
DC Summary - Research Scientist
-
Discharge Instructions:
Discharge Diagnosis/Procedures Acute Pancreatitis
Diet Low Fat
Activity As tolerated
Driving Restrictions As prior to admission
Bathing Restrictions None
Others Tests MRI Abdomen/ MRCP with and without contrast in
one month (to be ordered outpatient by PCP)
Instructions:
Stand-Alone Forms:
Changes to Home Medications: No
Discharge Medications:
DC Medications w/original date entered in [facility]
pantoprazole 20 mg tablet,delayed release (Protonix) 20 mg PO QPM Gastrointestinal issue 06/06/21
metoprolol succinate 25 mg tablet,extended release 24 hr 25 mg PO DAILY Blood Pressure 01/28/23
magnesium hydroxide 400 mg/5 mL oral suspension (Milk of Magnesia) 2,400 mg PO DAILYPRN PRN stomach issues 09/14/24
metoprolol succinate 25 mg tablet,extended release 24 hr (Toprol XL) 12.5 mg PO QPM 09/14/24
pantoprazole 40 mg tablet,delayed release (Protonix) 40 mg PO DAILY 09/14/24
Home Medication Changes
Pending Results: No
[2024-09-16 09:00] LABS: ALT (SGPT) 66 U/L (0-35); AST (SGOT) 67 U/L (14-36); Albumin 3.4 g/dl (3.5-5.0); Alkaline Phosphatase 73 U/L (38-126); Blood Urea Nitrogen 9 mg/dl (7-17); Calcium 8.9 mg/dl (8.4-10.2); Carbon Dioxide 28 mmol/L (22-30); Chloride 111 mmol/L (98-107); Estimated Creatinine Clearance 89 ml/min; Glucose 129 mg/dl (70-99); Magnesium 2.2 mg/dl (1.6-2.3); Potassium 4.9 mmol/L (3.5-5.1); Sodium 143 mmol/L (135-145); Total Bilirubin 0.6 mg/dl (0.2-1.3); Total Protein 6.2 g/dl (6.3-8.2); eGFR > 60.00
[2024-09-16] MEDS: LR IV (09:04)
--- NOTE | 2024-09-16 11:04 | CM ---
MD indicated pt ready for discharge.
Spoke with Charis she said she tolerated last 2 meals and felt she was ready floor discharge today.
Pt said her Mono can drive her home.
Offered VN she declined need.
PLAN Home no need
[2024-09-16 11:46] VITALS: BP 148/74
--- NOTE | 2024-09-16 12:17 | W.DCSUMMARY ---
Discharge Summary
Discharge Data
Date of Admission: 09/15/24
Date of Discharge: 09/16/24
-
Pending Results: No
Hospital Course
Discharging Physician : Dr. Benita Mendoza
Disposition : Home
Primary care physician : Dr. Karin Polo
Principal Discharge diagnosis : Acute Pancreatitis
Hospital Course :
Ms. Charis Sow is a 59-year-old with past medical history of pancreatic cancer status post Whipple procedure/chemo/XRT 2018, two prior admissions for acute pancreatitis unknown etiology who presents to the emergency department with epigastric
abdominal pain.
In the emergency department he was afebrile, blood pressure was 144/70 with a pulse of 102 and satting 98% on room air. There was no leukocytosis, hemoglobin and platelets were normal. Electrolytes BUN/creatinine were normal. LFTs was normal.
Lipase was elevated at 1547. Abdominal ultrasound shows hepatic fatty infiltration, prior cholecystectomy, prior Whipple's procedure.
Patient was admitted for treatment of acute pancreatitis. MRCP ordered showing mild dilated pancreatic duct, no mass.
Patient's symptoms improved with bowel rest and IVF. She tolerated a low fat diet prior to DC. Per GI recommendations, patient should have a MRI/MRCP with IV contrast in one month following resolution of pancreatitis (in place of CT).
Time spent on discharge was 31 minutes.
Important imaging findings :
Procedure findings :
Discharge Plan
-
Patient Disposition: Home (Routine Discharge)
Discharge Diagnosis/Procedures: Acute Pancreatitis
Diet: Low Fat
Activity: As tolerated
Driving Restrictions: As prior to admission
Bathing Restrictions: None
Others Tests: MRI Abdomen/ MRCP with and without contrast in one month (to be ordered outpatient by PCP)
Referrals:
Karin Polo CRNP [Family Provider] - in less than 1 week
Prescriptions:
Continued
pantoprazole [Protonix] 20 MG tablet,delayed release (DR/EC)
20 mg PO QPM
metoprolol succinate 25 mg Tablet Extended Release 24 Hr
25 mg PO DAILY
magnesium hydroxide [Milk of Magnesia] 400 mg/5 mL Suspension
2,400 mg PO DAILYPRN PRN (Reason: stomach issues)
pantoprazole [Protonix] 40 mg Tablet,Delayed Release (Dr/Ec)
40 mg PO DAILY
metoprolol succinate [Toprol XL] 25 mg Tablet Extended Release 24 Hr
12.5 mg PO QPM
Discharge Orders:
Discharge Patient (As Directed); Ordered 09/16/24
Ordered By: Benita Mendoza
Discharge Date and Time
Print Language: SERBIAN
== END 2024-09-16 13:31 | disposition home or self-care (01) | DRG 439 ==
LOC: 1 ACUTE 00:43
PROVIDERS: Student in an Organized Health Care Education/Training Program; ADMITTING PHYSICIAN Internal Medicine; ATTENDING PHYSICIAN Student in an Organized Health Care Education/Training Program; CONSULT PHYSICIAN Specialist; EMERGENCY PHYSICIAN Emergency Medicine; FAMILY PHYSICIAN Nurse Practitioner Family
DX: K85.90 Acute pancreatitis without necrosis or infection, unspecified (principal); C25.9 Malignant neoplasm of pancreas, unspecified; K86.1 Other chronic pancreatitis; Z87.891 Personal history of nicotine dependence; Z92.21 Personal history of antineoplastic chemotherapy; Z92.3 Personal history of irradiation; Z90.411 Acquired partial absence of pancreas
CPT/HCPCS: 74181; 76700; 80048; 80053; 81003; 82247; 83036; 83690; 83735; 84075; 84450; 84460; 84478; 85025; 85027; 96361; 96374; 96375; 99284

== ENCOUNTER → 2024-11-04 13:33 | Outpatient (REF) | payer BC, SELFPAY | LOC: PAVMRI 13:33 | PROVIDERS: ATTENDING PHYSICIAN Nurse Practitioner Family | DX: K85.80 Other acute pancreatitis without necrosis or infection (principal) | CPT/HCPCS: 74183; A9575 ==

== ENCOUNTER → 2024-12-10 09:29 | Outpatient (REF) | payer BC, SELFPAY | LOC: RAD 09:29 | PROVIDERS: ATTENDING PHYSICIAN Internal Medicine Gastroenterology | DX: R11.2 Nausea with vomiting, unspecified (principal) | CPT/HCPCS: 74018 ==